=== PATIENT | male | born 1955 | race Caucasian/White ===

== ENCOUNTER 2016-10-11 19:49 | Emergency (ER) | payer OTHER ==
[~2016-10-11 19:49] MED LIST: ASPI325T PO; ASPI81TA85 PO; CLOP75TA2 PO; CORE25TA PO; METAPKT PO; NITR4TASL SL; ULTR50TA PO; ZANT150T PO
--- NOTE | 2016-10-11 21:22 | EDDOCDS ---
Nurse's Notes [facility] Name: Alejandro Henry Age: 60 yrs Sex: Male : 1955 Arrival Date: 10/11/2016 Time: 19:49 Bed 8 Private MD: Diagnosis: Paroxysmal atrial fibrillation-due to noncompliance; spontaneously converted to NSR;Essential (primary) hypertension Presentation: 10/11 19:50 Red Flag criteria, patient assessed and taken directly to a bed. ttb 19:55 Presenting complaint: Patient states: pt was shoveling snow x3 hrs. 1730 pt took ttb evening meds and started feeling palpitations, denies SOB. "indigestion" feeling. Adult Sepsis Screening: The patient does not have new or worsening altered mentation. Patient's respiratory rate is less than 22. Systolic blood pressure is greater than 100. Patient has a qSOFA score of 0- Negative Sepsis Screen. Suicide/Homicide risk assessment- the patient denies having any suicidal and/or homicidal ideations and does not present with any other emotional, behavioral or mental health complaints. Status: Patient is not a gas appliance servicer or dependent. Transition of care: patient was not received from another setting of care. 19:55 Acuity: DANYELL Level 2 ttb 19:55 Method Of Arrival: Walkin/Carried/Asstd ttb Triage Assessment: 20:01 General: Appears in no apparent distress, well nourished, well groomed, Behavior is ttb appropriate for age, cooperative, pleasant. Pain: Denies pain. Pt Declines HIV testing. Neurological: Level of Consciousness is awake, alert. Cardiovascular: Rhythm is regular Chest pain is denied. Respiratory: Airway is patent. Respiratory: Denies cough, shortness of breath. GI: Denies nausea, vomiting, pain. Derm: Skin is normal. Historical: - Allergies: TETRACYCLINES; - Home Meds: 1. Coreg 12.5 mg Oral tab every 12 hours (Last dose: 10/11/2016 19:20) 2. aspirin 325 mg oral tab 1 tab once daily (Last dose: 10/11/2016 19:20) 3. simvastatin 20 mg Oral tab (Last dose: 10/11/2016 19:30) 4. Glucosamine 500 mg oral tab daily 5. spironolactone Unknown Oral Unknown once daily (Last dose: 10/11/2016 07:00) - PMHx: Hypertension; Hypercholesterolemia; Atrial Fib; - PSHx: Cardiac Ablation; Tonsillectomy; Adenoidectomy; - The history from nurses notes was reviewed: and elements of the historical information I have obtained differs from that reported to nursing. - Social history: Smoking status: Patient states was never smoker of tobacco. Patient/guardian denies using alcohol, street drugs, No barriers to communication noted, The patient speaks fluent Lithuanian, Speaks appropriately for age. - : The pt / caregiver states he / she is not on anticoagulants. Home medication list is obtained from the patient. - Hospitalizations: : No recent hospitalization is reported. - Exposure Risk Screening:: None identified. - Immunization history:: All immunizations up-to-date. - Family history: Not pertinent. - Social history:: the patient is a non-smoker, the patient does not drink alcohol. Screenin:30 Screening information is obtained from the patient. Fall risk: No risks identified. mv5 Assistance ADL's: requires no assistance with activities of daily living. Abuse/DV Screen: The patient / caregiver reports he/she is: not in a situation that causes fear, pain or injury. Nutritional screening: No deficits noted. Advance Directives: There is no active DNR order. home support is adequate. Assessment: 20:30 General: Appears in no apparent distress, comfortable, well nourished, well groomed, mv5 Behavior is cooperative, pleasant, at bedsdie.. Pain: Denies pain. Neurological: Level of Consciousness is awake, alert, Oriented to person, place, time. Cardiovascular: Capillary refill < 3 seconds Heart tones S1 S2 present Rhythm is sinus rhythm No ectopy. Respiratory: Airway is patent Respiratory effort is even, unlabored, Respiratory pattern is regular, symmetrical. GI: No deficits noted. : No deficits noted. Derm: Skin is pink, warm & dry. Vital Signs: 19:52 BP 134 / 89 RA Sitting (auto/lg); Pulse 198; Resp 20; Temp 96.9; Pulse Ox 98% on R/A; bnb Weight 104.33 kg; Height 6 ft. 0 in. (182.88 cm); Pain 0/10; 21:07 BP 141 / 84; Pulse 80; Resp 18; Temp 97.8(TE); Pulse Ox 98% on R/A; Pain 0/10; mdr 19:52 Body Mass Index 31.19 (104.33 kg, 182.88 cm) bnb Vitals: 19:52 Log In Time: October 11, 2016 at 19:50. RN notified that patient meets Red Flag bnb criteria. ED Course: 19:52 Patient visited by Ro Travis PCA. bnb 19:52 Patient moved to Waiting bnb 19:54 Mellissa Palacios, RN is Primary Nurse. rs3 19:54 Maria C Godoy,RN is Primary Nurse. rs3 19:54 Patient moved to 8 rs3 19:57 Triage Initiated ttb 20:03 Patient visited by Magalis Shore PCA. cln 20:03 EKG done. (by ED staff). Reviewed by Allan Martinez DO. cln 20:10 Calin Carbjaal MD is Attending Physician. pc 20:18 Patient visited by Calin Carbajal MD. pc 20:30 The patient / caregiver is instructed regarding the plan of care and ED course. mv5 20:30 No IV's were initiated during this patient's visit. No procedures done that require mv5 assistance. 20:54 Jonny Nieto is Referral Physician. pc 21:08 Patient visited by Tang Goodman PCA. mdr Order Results: There are currently no results for this order. Outcome: 20:54 Discharge ordered by Provider. pc 21:19 Discharge Assessment: Patient awake, alert and oriented x 3. No cognitive and/or mv5 functional deficits noted. Patient verbalized understanding of disposition instructions. patient administered narcotics - no. The following High Risk Discharge criteria are identified: None. Discharged to home ambulatory, with family. Condition: stable. Demonstrated understanding of Pt was receptive of discharge instructions/ teaching. No special radiology studies were completed. Property sent home with patient. 21:20 Patient left the ED. mv5 Signatures: Calin Carbajal MD MD pc Soosairaj, Rosemary, RN RN rs3 Mi Herzog RN RN ttb Tang Goodman, MARIE NEEDLEMAKER mdr Magalis Shore PCA NEEDLEMAKER cln Ro Travis NEEDLEMAKER NEEDLEMAKER bnb Maria C Godoy RN RN mv5 MTDD
--- NOTE | 2016-10-11 21:22 | EDDOCDS ---
Physician Documentation [facility] Name: Alejandro Henry Age: 60 yrs Sex: Male : 1955 Arrival Date: 10/11/2016 Time: 19:49 Bed 8 Private MD: Disposition: 10/11 20:53 Critical Care: Critical care not applicable. pc Disposition: 10/11/16 20:54 Discharged to Home/Self Care. Impression: Paroxysmal atrial fibrillation - due to noncompliance; spontaneously converted to NSR, Essential (primary) hypertension. - Condition is Stable. - Discharge Instructions: Atrial Fibrillation. - Medication Reconciliation, Local Pharmacy Hours form. - Follow up: Jonny Nieto; When: Call to arrange an appointment; Reason: Continuance of care. - Problem is new. - Symptoms are resolved. HPI: 20:27 This 60 yrs old Male presents to ER via Walkin/Carried/Asstd with complaints pc of Palpitations. 20:27 The history is obtained from the patient, the patient's spouse. He suddenly felt his pc heart racing after shoveling snow tonight. He did not have any SOB or chest pain, denies any dizziness. He was 2 hours late in taking his meds, including his Coreg that he has for AFib. He states that he was told by Lidia, in Dr. Nieto' office, that his pulse was too low and that she was going to talk to Dr. Nieto about lowering the dose. Dr. Nieto did not want to because his BP was still higher than it should be. The patient decided 3 weeks ago that he would cut it in half on his own. He took both halves tonight and is now going to go back to taking a full one daily. He arrived at the ED with a pulse of 190+ but was in NSR at 86 when placed in his room. 20:27 At their worst, the symptoms were moderate. In the emergency department, the symptoms pc have resolved. Historical: - Allergies: TETRACYCLINES; - Home Meds: 1. Coreg 12.5 mg Oral tab every 12 hours (Last dose: 10/11/2016 19:20) 2. aspirin 325 mg oral tab 1 tab once daily (Last dose: 10/11/2016 19:20) 3. simvastatin 20 mg Oral tab (Last dose: 10/11/2016 19:30) 4. Glucosamine 500 mg oral tab daily 5. spironolactone Unknown Oral Unknown once daily (Last dose: 10/11/2016 07:00) - PMHx: Hypertension; Hypercholesterolemia; Atrial Fib; - PSHx: Cardiac Ablation; Tonsillectomy; Adenoidectomy; - The history from nurses notes was reviewed: and elements of the historical information I have obtained differs from that reported to nursing. - Social history: Smoking status: Patient states was never smoker of tobacco. Patient/guardian denies using alcohol, street drugs, No barriers to communication noted, The patient speaks fluent Singaporean, Speaks appropriately for age. - : The pt / caregiver states he / she is not on anticoagulants. Home medication list is obtained from the patient. - Hospitalizations: : No recent hospitalization is reported. - Exposure Risk Screening:: None identified. - Immunization history:: All immunizations up-to-date. - Family history: Not pertinent. - Social history:: the patient is a non-smoker, the patient does not drink alcohol. ROS: 20:32 All systems are negative except as listed. pc Exam: 20:32 General Appearance: no acute distress, alert. pc 20:32 EENT: normal eye inspection, ears, nose and throat normal, pharynx normal, mucous membranes moist 20:32 Neck: The exam reveals no acute abnormalities. ROM is normal and painless. No nuchal rigidity is noted.. 20:32 Respiratory: no respiratory distress, normal breath sounds, chest non-tender. 20:32 CVS: regular pulse rate, regular rhythm, normal S1 and S2, no murmurs, strong peripheral pulses, normal capillary refill. 20:32 Abdomen: soft, non-tender, no organomegaly, normal bowel sounds. 20:32 Back: normal inspection. 20:32 Skin: skin color is normal, warm, dry. 20:32 Extremities: The extremities have a grossly normal appearance, are non-tender, without acute ROM abnormalities. 20:32 Neuro: oriented x 3, cranial nerves normal as tested, no motor deficits, no sensory deficits. 20:32 Psych: normal mood. Vital Signs: 19:52 BP 134 / 89 RA Sitting (auto/lg); Pulse 198; Resp 20; Temp 96.9; Pulse Ox 98% on R/A; bnb Weight 104.33 kg / 230.01 lbs; Height 6 ft. 0 in. (182.88 cm); Pain 0/10; 21:07 BP 141 / 84; Pulse 80; Resp 18; Temp 97.8(TE); Pulse Ox 98% on R/A; Pain 0/10; mdr 19:52 Body Mass Index 31.19 (104.33 kg, 182.88 cm) bnb MDM: 19:54 ECG WITH READING ER PHYS+CARDIAG ordered. EDMS 20:34 Differential Diagnosis: AFib with RVR, spontaneously converted to NSR; essential HTN. pc Plan: review EKG, observe, call Dr. Rogers. Test interpretation: EKG. 20:53 Data reviewed: old medical records, vital signs, nurses notes, EKG(s). The patient has pc been re-examined and re-evaluated. The clinical presentation did not require any ED treatment or interventions. Physician consultation: Dr. Preet Rogers MD was contacted at 20:53, regarding patient's condition, and advises the medications/treatment as provided. and agrees with the treatment provided and advises the discharge plans as outlined. Disposition: The historical points, examination findings, and any diagnostic results supporting the provided diagnosis, were discussed with the patient or legal guardian. The need for outpatient follow up with the provider listed on their discharge instructions was discussed. They were encouraged to return to [facility], or the nearest ED, if symptoms worsen/persist, or for any other questions/concerns. EC:34 Rate is 85 beats/min. Rhythm is regular, Normal Sinus Rhythm. QRS [place] is Normal. [place] pc interval is normal. QRS interval is normal. QT interval is normal. No Q waves. T waves are Normal. No ST changes noted. Clinical impression: Normal Sinus Rhythm. Signatures: Dispatcher [employer] EDMS Calin Carbajal MD MD pc Conner, Teresa RN RN ttb Maria C GodoyRN RN mv5 The chart was reviewed and I authenticate all verbal orders and agree with the evaluation and treatment provided.Corrections: (The following items were deleted from the chart) 20:34 20:27 He suddenly felt his heart racing after shoveling snow tonight. He did not have pc any SOB or chest pain, denies any dizziness. He was 2 hour slate in taking his meds, including his Coreg that he has for AFib. He states that he was told by Lidia in Dr. Nieto' office, that his pulse was too low and that she was going to talk to Dr. Nieto about lowering the dose. Dr. Nieto did not want to because his BP was still higher than it should be. The patient decided 3 weeks ago that he would cut it in misty on his own. He took both halves tonight and is now going to go back to taking a full one daily. pc MTDD
--- NOTE | 2016-10-12 08:29 | ECGEPIP ---
Stationary ECG Study [facility] - ED Test Date: 2016-10-11 Pat Name: NIECY RODRIGUEZ Department: Room: - Gender: M Technical Training Instructor: zoe : 1955 Requested By: ALYSA Ge Order Number: [id number] Reading MD: Darcie Gutierrez Measurements Intervals [place] Rate: 85 P: 48 CT: 154 QRS: -6 QRSD: 104 T: 22 QT: 353 QTc: 420 Interpretive Statements SINUS RHYTHM PRIOR [id number] Electronically Signed On 10-12-2016 8:28:46 EST by Darcie Gutierrez
--- NOTE | 2016-10-13 22:21 | EDDOCDS ---
Physician Documentation [facility] Name: Alejandro Henry Age: 60 yrs Sex: Male : 1955 Arrival Date: 10/11/2016 Time: 19:49 Bed 8 Private MD: Disposition: 10/11 20:53 Critical Care: Critical care not applicable. pc Disposition: 10/11/16 20:54 Discharged to Home/Self Care. Impression: Paroxysmal atrial fibrillation - due to noncompliance; spontaneously converted to NSR, Essential (primary) hypertension. - Condition is Stable. - Discharge Instructions: Atrial Fibrillation. - Medication Reconciliation, Local Pharmacy Hours form. - Follow up: Jonny Nieto; When: Call to arrange an appointment; Reason: Continuance of care. - Problem is new. - Symptoms are resolved. HPI: 20:27 This 60 yrs old Male presents to ER via Walkin/Carried/Asstd with complaints pc of Palpitations. 20:27 The history is obtained from the patient, the patient's spouse. He suddenly felt his pc heart racing after shoveling snow tonight. He did not have any SOB or chest pain, denies any dizziness. He was 2 hours late in taking his meds, including his Coreg that he has for AFib. He states that he was told by Lidia, in Dr. Nieto' office, that his pulse was too low and that she was going to talk to Dr. Nieto about lowering the dose. Dr. Nieto did not want to because his BP was still higher than it should be. The patient decided 3 weeks ago that he would cut it in half on his own. He took both halves tonight and is now going to go back to taking a full one daily. He arrived at the ED with a pulse of 190+ but was in NSR at 86 when placed in his room. 20:27 At their worst, the symptoms were moderate. In the emergency department, the symptoms pc have resolved. Historical: - Allergies: TETRACYCLINES; - Home Meds: 1. Coreg 12.5 mg Oral tab every 12 hours (Last dose: 10/11/2016 19:20) 2. aspirin 325 mg oral tab 1 tab once daily (Last dose: 10/11/2016 19:20) 3. simvastatin 20 mg Oral tab (Last dose: 10/11/2016 19:30) 4. Glucosamine 500 mg oral tab daily 5. spironolactone Unknown Oral Unknown once daily (Last dose: 10/11/2016 07:00) - PMHx: Hypertension; Hypercholesterolemia; Atrial Fib; - PSHx: Cardiac Ablation; Tonsillectomy; Adenoidectomy; - The history from nurses notes was reviewed: and elements of the historical information I have obtained differs from that reported to nursing. - Social history: Smoking status: Patient states was never smoker of tobacco. Patient/guardian denies using alcohol, street drugs, No barriers to communication noted, The patient speaks fluent Russian, Speaks appropriately for age. - : The pt / caregiver states he / she is not on anticoagulants. Home medication list is obtained from the patient. - Hospitalizations: : No recent hospitalization is reported. - Exposure Risk Screening:: None identified. - Immunization history:: All immunizations up-to-date. - Family history: Not pertinent. - Social history:: the patient is a non-smoker, the patient does not drink alcohol. ROS: 20:32 All systems are negative except as listed. pc Exam: 20:32 General Appearance: no acute distress, alert. pc 20:32 EENT: normal eye inspection, ears, nose and throat normal, pharynx normal, mucous membranes moist 20:32 Neck: The exam reveals no acute abnormalities. ROM is normal and painless. No nuchal rigidity is noted.. 20:32 Respiratory: no respiratory distress, normal breath sounds, chest non-tender. 20:32 CVS: regular pulse rate, regular rhythm, normal S1 and S2, no murmurs, strong peripheral pulses, normal capillary refill. 20:32 Abdomen: soft, non-tender, no organomegaly, normal bowel sounds. 20:32 Back: normal inspection. 20:32 Skin: skin color is normal, warm, dry. 20:32 Extremities: The extremities have a grossly normal appearance, are non-tender, without acute ROM abnormalities. 20:32 Neuro: oriented x 3, cranial nerves normal as tested, no motor deficits, no sensory deficits. 20:32 Psych: normal mood. Vital Signs: 19:52 BP 134 / 89 RA Sitting (auto/lg); Pulse 198; Resp 20; Temp 96.9; Pulse Ox 98% on R/A; bnb Weight 104.33 kg / 230.01 lbs; Height 6 ft. 0 in. (182.88 cm); Pain 0/10; 21:07 BP 141 / 84; Pulse 80; Resp 18; Temp 97.8(TE); Pulse Ox 98% on R/A; Pain 0/10; mdr 19:52 Body Mass Index 31.19 (104.33 kg, 182.88 cm) bnb MDM: 19:54 ECG WITH READING ER PHYS+CARDIAG ordered. EDMS 20:34 Differential Diagnosis: AFib with RVR, spontaneously converted to NSR; essential HTN. pc Plan: review EKG, observe, call Dr. Rogers. Test interpretation: EKG. 20:53 Data reviewed: old medical records, vital signs, nurses notes, EKG(s). The patient has pc been re-examined and re-evaluated. The clinical presentation did not require any ED treatment or interventions. Physician consultation: Dr. Preet Rogers MD was contacted at 20:53, regarding patient's condition, and advises the medications/treatment as provided. and agrees with the treatment provided and advises the discharge plans as outlined. Disposition: The historical points, examination findings, and any diagnostic results supporting the provided diagnosis, were discussed with the patient or legal guardian. The need for outpatient follow up with the provider listed on their discharge instructions was discussed. They were encouraged to return to [facility], or the nearest ED, if symptoms worsen/persist, or for any other questions/concerns. 02 12:32 ECG/EKG was scanned into [facility] and attached to record. EC12 20:34 Rate is 85 beats/min. Rhythm is regular, Normal Sinus Rhythm. QRS [place] is Normal. [place] pc interval is normal. QRS interval is normal. QT interval is normal. No Q waves. T waves are Normal. No ST changes noted. Clinical impression: Normal Sinus Rhythm. Signatures: Dispatcher [employer] EDMS Calin Carbajal MD MD pc Shyanne Pappas, Reg Reg gb Mi Herzog RN RN ttb Vannedery, MeganRN RN mv5 The chart was reviewed and I authenticate all verbal orders and agree with the evaluation and treatment provided.Corrections: (The following items were deleted from the chart) 20:34 20:27 He suddenly felt his heart racing after shoveling snow tonight. He did not have pc any SOB or chest pain, denies any dizziness. He was 2 hour slate in taking his meds, including his Coreg that he has for AFib. He states that he was told by Lidia, in Dr. Nieto' office, that his pulse was too low and that she was going to talk to Dr. Nieto about lowering the dose. Dr. Nieto did not want to because his BP was still higher than it should be. The patient decided 3 weeks ago that he would cut it in misty on his own. He took both halves tonight and is now going to go back to taking a full one daily. pc Attachments: 10/12 12:32 ECG/EKG gb Chart Complete MTDD
--- NOTE | 2016-10-13 22:21 | EDDOCDS ---
Nurse's Notes [facility] Name: Alejandro Rodriguez Age: 60 yrs Sex: Male : 1955 Arrival Date: 10/11/2016 Time: 19:49 Bed 8 Private MD: Diagnosis: Paroxysmal atrial fibrillation-due to noncompliance; spontaneously converted to NSR;Essential (primary) hypertension Presentation: 10/11 19:50 Red Flag criteria, patient assessed and taken directly to a bed. ttb 19:55 Presenting complaint: Patient states: pt was shoveling snow x3 hrs. 1730 pt took ttb evening meds and started feeling palpitations, denies SOB. "indigestion" feeling. Adult Sepsis Screening: The patient does not have new or worsening altered mentation. Patient's respiratory rate is less than 22. Systolic blood pressure is greater than 100. Patient has a qSOFA score of 0- Negative Sepsis Screen. Suicide/Homicide risk assessment- the patient denies having any suicidal and/or homicidal ideations and does not present with any other emotional, behavioral or mental health complaints. Status: Patient is not a web services manager or dependent. Transition of care: patient was not received from another setting of care. 19:55 Acuity: DANYELL Level 2 ttb 19:55 Method Of Arrival: Walkin/Carried/Asstd ttb Triage Assessment: 20:01 General: Appears in no apparent distress, well nourished, well groomed, Behavior is ttb appropriate for age, cooperative, pleasant. Pain: Denies pain. Pt Declines HIV testing. Neurological: Level of Consciousness is awake, alert. Cardiovascular: Rhythm is regular Chest pain is denied. Respiratory: Airway is patent. Respiratory: Denies cough, shortness of breath. GI: Denies nausea, vomiting, pain. Derm: Skin is normal. Historical: - Allergies: TETRACYCLINES; - Home Meds: 1. Coreg 12.5 mg Oral tab every 12 hours (Last dose: 10/11/2016 19:20) 2. aspirin 325 mg oral tab 1 tab once daily (Last dose: 10/11/2016 19:20) 3. simvastatin 20 mg Oral tab (Last dose: 10/11/2016 19:30) 4. Glucosamine 500 mg oral tab daily 5. spironolactone Unknown Oral Unknown once daily (Last dose: 10/11/2016 07:00) - PMHx: Hypertension; Hypercholesterolemia; Atrial Fib; - PSHx: Cardiac Ablation; Tonsillectomy; Adenoidectomy; - The history from nurses notes was reviewed: and elements of the historical information I have obtained differs from that reported to nursing. - Social history: Smoking status: Patient states was never smoker of tobacco. Patient/guardian denies using alcohol, street drugs, No barriers to communication noted, The patient speaks fluent Yoruba, Speaks appropriately for age. - : The pt / caregiver states he / she is not on anticoagulants. Home medication list is obtained from the patient. - Hospitalizations: : No recent hospitalization is reported. - Exposure Risk Screening:: None identified. - Immunization history:: All immunizations up-to-date. - Family history: Not pertinent. - Social history:: the patient is a non-smoker, the patient does not drink alcohol. Screenin:30 Screening information is obtained from the patient. Fall risk: No risks identified. mv5 Assistance ADL's: requires no assistance with activities of daily living. Abuse/DV Screen: The patient / caregiver reports he/she is: not in a situation that causes fear, pain or injury. Nutritional screening: No deficits noted. Advance Directives: There is no active DNR order. home support is adequate. Assessment: 20:30 General: Appears in no apparent distress, comfortable, well nourished, well groomed, mv5 Behavior is cooperative, pleasant, at bedsdie.. Pain: Denies pain. Neurological: Level of Consciousness is awake, alert, Oriented to person, place, time. Cardiovascular: Capillary refill < 3 seconds Heart tones S1 S2 present Rhythm is sinus rhythm No ectopy. Respiratory: Airway is patent Respiratory effort is even, unlabored, Respiratory pattern is regular, symmetrical. GI: No deficits noted. : No deficits noted. Derm: Skin is pink, warm & dry. Vital Signs: 19:52 BP 134 / 89 RA Sitting (auto/lg); Pulse 198; Resp 20; Temp 96.9; Pulse Ox 98% on R/A; bnb Weight 104.33 kg; Height 6 ft. 0 in. (182.88 cm); Pain 0/10; 21:07 BP 141 / 84; Pulse 80; Resp 18; Temp 97.8(TE); Pulse Ox 98% on R/A; Pain 0/10; mdr 19:52 Body Mass Index 31.19 (104.33 kg, 182.88 cm) bnb Vitals: 19:52 Log In Time: October 11, 2016 at 19:50. RN notified that patient meets Red Flag bnb criteria. ED Course: 19:52 Patient visited by Ro Travis PCA. bnb 19:52 Patient moved to Waiting bnb 19:54 Mellissa Palacios, RN is Primary Nurse. rs3 19:54 Maria C Godoy,RN is Primary Nurse. rs3 19:54 Patient moved to 8 rs3 19:57 Triage Initiated ttb 20:03 Patient visited by Magalis Shore PCA. cln 20:03 EKG done. (by ED staff). Reviewed by Alysa Martinez DO. cln 20:10 Calin Carbajal MD is Attending Physician. pc 20:18 Patient visited by Calin Carbajal MD. pc 20:30 The patient / caregiver is instructed regarding the plan of care and ED course. mv5 20:30 No IV's were initiated during this patient's visit. No procedures done that require mv5 assistance. 20:54 Jonny Nieto is Referral Physician. pc 21:08 Patient visited by Tang Goodman PCA. mdr 10/12 08:34 EKG-ADULT Returned. EDMS 12:32 ECG/EKG was scanned into [employer] and attached to record. gb Order Results: Radiology Order: EKG-ADULT Test: EKG-ADULT REASON FOR EXAMINATION: palpitations; Stationary ECG Study; [facility] - ED; ; Test Date: 2016-10-11; Pat Name: ALEJANDRO RODRIGUEZ Department:; Room: -; Gender: M Arcade Technician: zoe; : 1955 Requested By: ALYSA Ge; Order Number: [id number] Reading MD: Darcie Gutierrez; Measurements; Intervals [place]; Rate: 85 P: 48; DC: 154 QRS: -6; QRSD: 104 T: 22; QT: 353; QTc: 420; Interpretive Statements; SINUS RHYTHM; PRIOR SVT03/31/14; Electronically Signed On 10-12-2016 8:28:46 EST by Darcie Gutierrez; Outcome: 10/11 20:54 Discharge ordered by Provider. pc 21:19 Discharge Assessment: Patient awake, alert and oriented x 3. No cognitive and/or mv5 functional deficits noted. Patient verbalized understanding of disposition instructions. patient administered narcotics - no. The following High Risk Discharge criteria are identified: None. Discharged to home ambulatory, with family. Condition: stable. Demonstrated understanding of Pt was receptive of discharge instructions/ teaching. No special radiology studies were completed. Property sent home with patient. 21:20 Patient left the ED. mv5 Signatures: Dispatcher [employer] EDMS Calin Carbajal MD MD pc Shyanne Pappas, Reg Reg gb Lesly Zamora,RN RN rs3 Mi Herzog RN RN Tang Griffin, GM MOBILE GM MOBILE Magalis Livingston, GM MOBILE GM MOBILE Ro Lux, GM MOBILE GM MOBILE Maria C Deras,RN RN mv5 Chart Complete MTDD
== END 2016-10-11 21:20 | disposition home or self-care (01) ==
LOC: M ED 19:49
DX: I48.0 Paroxysmal atrial fibrillation (principal); Z91.14 Patient's other noncompliance with medication regimen; I10 Essential (primary) hypertension; E78.00 Pure hypercholesterolemia, unspecified; Z79.82 Long term (current) use of aspirin; Z79.899 Other long term (current) drug therapy; Z88.1 Allergy status to other antibiotic agents

== ENCOUNTER → 2017-01-03 | Outpatient (CLI) | payer OTHER ==
--- NOTE | 2017-01-05 09:53 | SLEEPCENT ---
DATE OF PROCEDURE: 01/03/2017 ORDERED BY: Kenia Cunha Nocturnal polysomnography was performed due to concern for the obstructive sleep apnea syndrome in this patient with a history of excessive somnolence and nonrestorative sleep. Home testing had been performed, but was found nondiagnostic. 8 hours of data were reviewed. There were 372 minutes of sleep identified. Sleep latency was normal at 12 minutes. Rapid eye movement (REM) sleep was delayed at 171 minutes. Sleep architecture showed significant fragmentation. Sleep progression was fair. There were 3 REM periods appreciated. Overall sleep efficiency was 78.2%. Electrocardiogram (EKG) showed a sinus rhythm with an average heart rate of 58 beats per minute. Electroencephalogram (EEG) showed fairly normal waveforms for wake and sleep stages. There were 34 respiratory events identified of 10 seconds in duration or greater for an apnea-hypopnea index of 5.5. The events were primarily obstructive and predominantly occurred in the supine position. They were not stage related. Arousals from respiratory events occurred 7.9 times per hour when arousals from snoring were included. Oxygen saturations remained 90% or better for most of the study. There was significant limb activity with a limb movement arousal index of 13.1 and 5 trains of 30 events. IMPRESSION: 1. Periodic limb movement disorder (G47.61), limb movement arousal index of 13.1. 2. Mild positional obstructive sleep apnea syndrome (G47.33), apnea-hypopnea index 5.5. RECOMMENDATION: Sleep position retraining for avoidance of the supine posture may be sufficient to address the patient's respiratory events. If symptoms persist despite sleep position retraining, return to the sleep center for pressure titration may be helpful. Interventions to reduce the frequency or arousal from limb activity are likely to be necessary to improve sleep efficiency given the elevated arousal index identified.
== END ==
LOC: M SLEEP 08:50
PROVIDERS: ATTEND Nurse Practitioner Adult Health
DX: G47.30 Sleep apnea, unspecified (principal)

== ENCOUNTER → 2017-02-21 | Outpatient (CLI) | payer OTHER ==
--- NOTE | 2017-02-23 09:37 | SLEEPCENT ---
DATE OF STUDY: 02/21/2017 ORDERING PROVIDER: Kenia Cunha NP Nocturnal polysomnography was performed for the titration of pressure therapy in this patient with obstructive sleep apnea syndrome, apnea-hypopnea index of 5.5. For testing, the patient was fit with a ResMed AirFit F20 full face mask of medium size. 4 cm of water pressure were applied to the circuit, and the lights were extinguished. 7 hours and 2 minutes of data were reviewed. There were 366 minutes of sleep identified. Sleep latency was mildly prolonged at 16 minutes. Rapid eye movement (REM) latency was normal at 83 minutes. Sleep architecture improved with optimal pressure therapy. There were 3-4 REM periods appreciated. Overall sleep efficiency was 88.1%. Electrocardiogram (EKG) showed a sinus rhythm with occasional PVCs. Average heart rate 50 beats per minute. Heart rate ranged 35-60. Electroencephalogram (EEG) showed reasonably normal waveforms for awake and sleep. Respiratory events were found best palliated with continuous positive airway pressure (CPAP) at a pressure of +7, with which pressure the patient slept through REM without respiratory event or oxygen desaturation. There was limb activity appreciated. Limb movement arousal index was 4.9, down significantly from the diagnostic study. IMPRESSION: Obstructive sleep apnea syndrome (G47.33). RECOMMENDATION: Nightly use of pressure therapy 7 cm of water. MTDD
== END ==
LOC: M SLEEP 20:00
PROVIDERS: ATTEND Nurse Practitioner Adult Health
DX: G47.33 Obstructive sleep apnea (adult) (pediatric) (principal)

== ENCOUNTER 2017-08-15 13:28 | Emergency (ER) | payer OTHER ==
[~2017-08-15] VITALS: Ht 180.3 cm; Wt 104.5 kg
[2017-08-15 13:35] VITALS: BP 169/83
[2017-08-15] MEDS ORDERED: LORA10TA2 PO (13:46)
[2017-08-15] MEDS ORDERED: SIMV20TA2 PO (13:46)
[2017-08-15] MEDS ORDERED: SPIR25TA2 PO (13:46)
[2017-08-15] MEDS ORDERED: VIAG100T (13:46)
--- NOTE | 2017-08-15 15:04 | REP ---
Left tibia-fibula four views: I suspect nondisplaced fractures of the distal fibula and medial malleolus. This could be artifact from unfused epiphyses. Correlate with clinical point tenderness. Mineralization joint spaces are normal. No calcifications or foreign bodies. Impression: Question nondisplaced fractures of the medial lateral malleoli versus unfused epiphyses. Correlate with clinical point tenderness. Signed by Escobar Barlow MD 08/15/2017 02:55 P
--- NOTE | 2017-08-15 15:07 | REP ---
Left ankle four views: There is a transverse fracture of the medial malleolus. There is no lateral malleolar fracture. No posterior malleolar fracture. Mortise is symmetric. Mineralization normal. No calcifications or foreign bodies. Impression: Medial malleolar fracture. Signed by Escobar Barlow MD 08/15/2017 02:58 P
--- NOTE | 2017-08-16 07:23 | REP ---
Calcaneus two views: There are calcaneal plantar and Achilles spurs. Mineralization is normal. There is no fracture. There are no calcifications or foreign bodies. Signed by Escobar Barlow MD 08/15/2017 02:58 P
== END 2017-08-15 16:27 | disposition home or self-care (01) ==
LOC: M ED 13:28
DX: S82.52XA Displaced fracture of medial malleolus of left tibia, initial encounter for closed fracture (principal); W11.XXXA Fall on and from ladder, initial encounter; Y92.018 Other place in single-family (private) house as the place of occurrence of the external cause; Y93.89 Activity, other specified; Y99.8 Other external cause status; Z79.899 Other long term (current) drug therapy; Z79.82 Long term (current) use of aspirin; Z88.1 Allergy status to other antibiotic agents

== ENCOUNTER → 2017-11-08 | Outpatient (REF) | payer OTHER ==
[2017-11-08 18:12] LABS: VITAMIN B12 LEVEL > 2000 PG/ML
== END ==
LOC: M LAB REF 16:41
DX: D48.5 Neoplasm of uncertain behavior of skin (principal)

== ENCOUNTER → 2017-11-24 | Outpatient (REF) | payer OTHER | LOC: M LAB REF 13:19 | DX: L72.3 Sebaceous cyst (principal); D48.5 Neoplasm of uncertain behavior of skin ==

== ENCOUNTER → 2017-12-31 | Outpatient (REF) | payer OTHER | LOC: M LAB REF 12:11 | DX: D10.39 Benign neoplasm of other parts of mouth (principal) | CPT/HCPCS: 88305 ==

== ENCOUNTER 2018-11-14 17:39 | Inpatient (IN) | payer OTHER ==
[~2018-11-14] VITALS: Ht 180.3 cm; Wt 104.5 kg
[~2018-11-14 17:39] MED LIST changes: +LORA-243 PO; +SIMV20TA2 PO; +SPIR-10 PO; +VIAG100T
[2018-11-14] MEDS ORDERED: CARV3.12 (18:02)
[2018-11-14] MEDS ORDERED: ASPI81TA85 PO (18:02)
[2018-11-14 18:25] LABS: BASO # 0.1 10^3/uL (0.0-0.2); BASO % 0.5 % (0.0-1.0); EOS # 0.2 10^3/uL (0.0-0.50); EOS % 1.9 % (0.0-3.0); HEMOGLOBIN 14.8 g/dl (13.5-17.5); LYMPH # 2.6 10^3/uL (1.5-4.5); LYMPH % 22.6 % (24.0-44.0); MEAN CORPUSCULAR HEMOGLOBIN 30.5 pg (27.0-33.0); MEAN CORPUSCULAR HGB CONC 34.4 g/dl (32.0-36.5); MEAN CORPUSCULAR VOLUME 88.7 fl (80.0-96.0); MONO # 0.7 10^3/uL (0.0-0.8); MONO % 5.6 % (0.0-5.0); NEUTROPHILS # 8.1 10^3/uL (1.8-7.7); PLATELET COUNT, AUTOMATED 261 10^3/uL (150-450); RED BLOOD COUNT 4.85 10^6/uL (4.30-6.10); WHITE BLOOD COUNT 11.7 10^3/uL (4.0-10.0)
--- NOTE | 2018-11-14 18:39 | REP ---
Portable chest x-ray: Upright single view. History: Dyspnea and cough. Comparison chest x-ray: September 05, 2013. Findings: EKG monitoring electrodes overlie the chest. Cardiomediastinal silhouette is unremarkable and unchanged. No infiltrate is seen. Pleural angles are sharp. Pulmonary vasculature is not increased. Impression: No active cardiopulmonary disease. Electronically Signed by Kamari Finney MD 11/14/2018 06:31 P
[2018-11-14 18:57] LABS: INFLUENZA A AMPLIFICATION NEGATIVE (NEGATIVE); INFLUENZA B AMPLIFICATION NEGATIVE (NEGATIVE)
[2018-11-14 18:57] LABS: ALBUMIN 4.1 GM/DL (3.2-5.2); ALT/SGPT 30 U/L (12-78); BILIRUBIN,DIRECT 0.2 MG/DL (0.0-0.2); BILIRUBIN,TOTAL 0.8 MG/DL (0.2-1.0); BLOOD UREA NITROGEN 17 MG/DL (7-18); CALCIUM LEVEL 8.3 MG/DL (8.8-10.2); CARBON DIOXIDE LEVEL 26 MEQ/L (21-32); CHLORIDE LEVEL 104 MEQ/L (98-107); CPK CREATINE PHOSPHOKINASE 187 U/L (39-308); CREATININE FOR GFR 1.09 MG/DL (0.70-1.30); GLOMERULAR FILTRATION RATE > 60.0 (>49); GLUCOSE, FASTING 124 MG/DL (70-100); LIPASE 86 U/L (73-393); MB/CK RELATIVE INDEX 1.82 (< OR =4); NT-PRO BNP 320 PG/ML (<125); POTASSIUM SERUM 3.8 MEQ/L (3.5-5.1); SODIUM LEVEL 138 MEQ/L (136-145)
--- NOTE | 2018-11-14 19:48 | REP ---
Right upper quadrant sonography: History: Rule out cholecystitis. Comparison study: No comparison study. Findings: Scanning through the right upper quadrant of the abdomen demonstrates a normal sized, thin-walled gallbladder without evidence of stone or polyp. Common bile duct is normal measuring 0.4 cm in greatest diameter. No focal liver lesion is seen. Liver size is normal. No pancreatic abnormality is observed. No right renal abnormality is seen. There is no evidence of ascites. The right kidney measures 12.2 x 4.4 x 5.1 cm. Impression: Negative right upper quadrant sonography. Electronically Signed by Kamari Finney MD 11/14/2018 09:03 P
[2018-11-15 00:10] LABS: MB/CK RELATIVE INDEX 2.76 (< OR =4); TROPONIN I 0.54 NG/ML (< 0.10)
[2018-11-15] MEDS ORDERED: SIMV20TA2 PO (01:23)
[2018-11-15] MEDS ORDERED: LORA24TA PO (01:23)
[2018-11-15] MEDS ORDERED: ASPI1TAB PO (01:23)
[2018-11-15] MEDS ORDERED: CARV3.12 PO (01:23)
[2018-11-15] MEDS ORDERED: ONDANSETRON 4MG/2ML VIAL (J2405) IV PRN (01:30)
[2018-11-15] MEDS ORDERED: ACETAMINOPHEN TAB 650MG DOSE (2X325MG) PO PRN (01:30)
--- NOTE | 2018-11-15 02:28 | HPE ---
DATE OF ADMISSION: 11/15/2018 CHIEF COMPLAINT: Nausea, diaphoresis, palpitations. HISTORY OF PRESENT ILLNESS: The patient is a 63-year-old male. He has a significant past medical history of hypertension, hyperlipidemia, obesity, paroxysmal atrial fibrillation status post ablation five years ago. He usually follows with Dr. Nieto. He also had a stress test approximately five years ago which was negative. He presents to the emergency room with nausea and diaphoresis that started tonight. The patient states that he also felt his heart racing. His was at bedside and says she listened to his heart and that it was racing quite significantly. He had a bowel movement and he said his symptoms immediately resolved. He has not had any chest pain, cough, fevers, chills, abdominal pain, constipation or urinary symptoms. In the emergency room initial troponin was negative. Second troponin was bumped to 0.54. He currently is asymptomatic. Denies any chest pain. Electrocardiogram (EKG) has no ischemic changes. PAST MEDICAL HISTORY: See history of the present illness (HPI). PAST SURGICAL HISTORY: Ablation. HOME MEDICATIONS: Include: - aspirin - Coreg - Zocor - spironolactone ALLERGIES: TETRACYCLINE. SOCIAL HISTORY: Denies alcohol, tobacco or illicit drug use. FAMILY HISTORY: Family history of coronary artery disease, not premature coronary artery disease just coronary artery disease involvement. REVIEW OF SYSTEMS: A 12-point review of systems was completed, all of which were negative except those listed in the history of the present illness. VITAL SIGNS ON ADMISSION: He was afebrile, initial pulse of 175, respirations of 20, saturating at 98% on room air, blood pressure (BP) 137/85. PHYSICAL EXAMINATION: General: He is well nourished, in no apparent distress. Head is normocephalic, atraumatic. Eyes: Extraocular movements are intact. Pupils equal, round, reactive to light. Neck is supple. No jugular venous pressure (JVP). Lungs: Clear to auscultation. No crackles, wheezes, rales or rhonchi. Cardiovascular: Regular rate and rhythm. Normal S1, S2. No murmurs, gallops, or rubs. Abdomen: Soft, nontender, nondistended, positive bowel sounds. No rebound or guarding. Extremities: No pitting edema or calf tenderness. Skin: Intact. No rashes, lesions or breakdown. Neurological: Alert and oriented (A and O) times three. No focal deficits appreciated on the examination. LABORATORIES AND IMAGING COMPLETED IN THE EMERGENCY DEPARTMENT: White count of 11, hemoglobin and hematocrit (H and H) of 14/43, platelet count of 261. Chemistry shows a BUN and creatinine of 17/1.07. Initial troponin of 0.1, repeat 0.54. Thyroid-stimulating hormone (TSH) of 4.45. ProBNP of 320. Rapid flu is negative. Ultrasound of the right upper quadrant is negative. Chest x-ray is negative. ASSESSMENT AND PLAN: 1. Vwx-UU-lzbbinjoc myocardial infarction likely type 2 urr-VM-byuisvihi myocardial infarction in the setting of paroxysmal atrial fibrillation. The patient has a known history of paroxysmal atrial fibrillation. For now, we will trend the troponins, daily electrocardiogram (EKG), we will get an echocardiogram. We will recheck free T4 and thyroid-stimulating hormone (TSH). We will check all the electrolytes. Potassium and calcium were within normal limits. We will place the patient on telemetry to assess for any episodes of atrial fibrillation (AFib). I believe this is a type 2 in this vcy-CD-ttffibqty myocardial infarction demand ischemia from the elevated heart rates. If the repeat troponins continue to increase we will continue the anticoagulation at that point in time. CHADS VASc score is only 1 so aspirin is appropriate for stroke prevention. His thrombolysis in myocardial infarction (JAYCE) score is 3 and his heart score is 4. I do believe that patient would benefit from a stress test if his troponin does continue to be persistently elevated. 2. Paroxysmal atrial fibrillation: See problem number one. 3. Hypertension: Continue Coreg and spironolactone. 4. Hyperlipidemia: Continue statin. 5. Supportive deep vein thrombosis (DVT) prophylaxis: Heparin subcutaneous. 6. Gastrointestinal (GI) prophylaxis: It is not indicated. 7. Diet: Cardiac. Again, enzymes will be checked every 5 hourly for now. If his enzymes trend up the patient will be started on anticoagulation. For now I believe this is rcl-LK-pwpwxluik myocardial infarction type 2 in the setting of paroxysmal atrial fibrillation. Cardiology to see patient in the a.m.
[2018-11-15 03:00] VITALS: BP 149/82
[2018-11-15 04:56] LABS: APPEARANCE, URINE CLEAR (CLEAR); BACTERIA, URINE AUTO NEGATIVE (NEGATIVE); BILIRUBIN, URINE AUTO NEGATIVE (NEGATIVE); BLOOD, URINE BLOOD NEGATIVE (NEGATIVE); COLOR, URINE YELLOW (YELLOW); GLUCOSE, URINE (UA) AUTO NEGATIVE (NEGATIVE); KETONE, URINE AUTO TRACE mg/dL (NEGATIVE); LEUKOCYTE ESTERASE, URINE AUTO NEGATIVE (NEGATIVE); NITRITE, URINE AUTO NEGATIVE (NEGATIVE); PROTEIN, URINE AUTO NEGATIVE (NEGATIVE); RBC, URINE AUTO 1 /HPF (0-3); SPECIFIC GRAVITY URINE AUTO 1.018 (1.002-1.035); SQUAMOUS EPITHELIAL CELL UR AU 0 /HPF (0-6); UROBILINOGEN, URINE AUTO 0.2 mg/dL (0.0-2.0); WBC, URINE AUTO 1 /HPF (0-3)
[2018-11-15 05:12] LABS: INR 1.48; PROTHROMBIN TIME 18.2 SECONDS (12.1-14.4)
[2018-11-15 05:13] LABS: PARTIAL THROMBOPLASTIN TIME 37.4 SECONDS (25.4-37.6)
[2018-11-15 05:38] LABS: FREE T4 1.04 NG/DL (0.76-1.46); THYROID STIMULATING HORMONE 2.04 uIU/ML (0.358-3.740)
[2018-11-15 05:47] LABS: MAGNESIUM LEVEL 2.1 MG/DL (1.8-2.4)
[2018-11-15] MEDS ORDERED: HEPARIN SOD (PORCINE) 5000 UNITS/ML VIAL SC SCH (06:00)
[2018-11-15] MEDS ORDERED: ENOXAPARIN 100MG/1ML SYRINGE (J1650) SC SCH (06:00)
[2018-11-15] MEDS ORDERED: CLOPIDOGREL 75 MG TAB PO ONE (07:30)
[2018-11-15 08:00] VITALS: BP 128/88
[2018-11-15 08:28] LABS: MB/CK RELATIVE INDEX 3.03 (< OR =4); TROPONIN I 0.65 NG/ML (< 0.10)
--- NOTE | 2018-11-15 08:50 | ECGEPIP ---
Stationary ECG Study [facility] - ED Test Date: 2018-11-14 Pat Name: NIECY RODRIGUEZ Department: Room: - Gender: M Willow Specialists: : 1955 Requested By: Darcie Gutierrez Order Number: [id number] Reading MD: Calin Carbajal Measurements Intervals [place] Rate: 78 P: 50 SC: 157 QRS: -13 QRSD: 114 T: 7 QT: 355 QTc: 405 Interpretive Statements SINUS RHYTHM INCOMPLETE RIGHT BUNDLE BRANCH BLOCK NSTTW ABNORMALITIES SIMILAR TO 10/11/16 Electronically Signed On 11-15-2018 8:49:59 EDT by Calin Carbajal
--- NOTE | 2018-11-15 08:58 | ECGEPIP ---
Stationary ECG Study [facility] - ED Test Date: 2018-11-14 Pat Name: NIECY RODRIGUEZ Department: Room: [place] [id number] Gender: M Payroll Director: LAURA : 1955 Requested By: CRISTIAN Cuello Order Number: [id number] Reading MD: Calin Carbajal Measurements Intervals [place] Rate: 58 P: 33 TN: 151 QRS: -1 QRSD: 107 T: -1 QT: 394 QTc: 387 Interpretive Statements SINUS BRADYCARDIA WITH SINUS ARRHYTHMIA INCOMPLETE RIGHT BUNDLE BRANCH BLOCK NSTTW ABNORMALITIES SIMILAR TO PRIOR ON SAME DATE Electronically Signed On 11-15-2018 8:58:15 EDT by Calin Carbajal
[2018-11-15] MEDS ORDERED: SPIRONOLACTONE 12.5MG PER 1/2 TABLET PO SCH (09:00)
[2018-11-15] MEDS ORDERED: CARVedilol 3.125 MG TAB PO SCH (09:00)
[2018-11-15] MEDS ORDERED: ZOCO40TA PO (09:14)
[2018-11-15] MEDS ORDERED: CLOP75TA2 PO (09:14)
--- NOTE | 2018-11-15 19:02 | DSES ---
DATE OF ADMISSION: 11/15/2018 DATE OF DISCHARGE: 11/15/2018 CROP AND SOIL SCIENTIST: Preet Rogers MD covering for Dr. Nieto. PRIMARY CARE PROVIDER: Danni Mclean FINAL DIAGNOSES: Qpv-KM-itpiedsmz myocardial infarction (NSTEMI). Atrial fibrillation with rapid ventricular response. Chest pain. Hypertension. Dyslipidemia. HISTORY OF PRESENT ILLNESS: This is a 63-year-old male patient with underlying medical history of hypertension, dyslipidemia, obesity, paroxysmal atrial fibrillation, heart ablation five years ago, follows up with Dr. Nieto. Stress test done five years ago was negative. Patient presented to the emergency department with nausea, vomiting, diaphoresis and stated that he felt his heart was racing. The patient was found to be in atrial fibrillation with rapid ventricular response. Patient had a bowel movement and he states symptoms immediately resolved. Denies any chest pain, fever or chills initially. In the emergency room, the patient's initial troponin was negative. HOSPITAL COURSE: Patient's subsequently was admitted to the hospital for overnight observation and further workup for a-fib with rapid ventricular response (RVR). TSH was appreciated to be normal. Overnight patient's troponin became elevated at 0.5 and 0.7. Patient also reported right upper abdomen, right lower chest wall pain with no relieving exacerbating factor that is sharp. Right upper quadrant ultrasound was negative. Liver function tests and bilirubin were negative. Patient reported mild nausea. EKG was appreciated. Telemetry was appreciated. Case was discussed with Dr. Rogers who recommended patient to be transferred for cardiac catheterization. Subsequently, arrangements were made for patient to be transferred for cardiac catheterization. Patient is placed on Lovenox, aspirin, Plavix and statin. Case was discussed with [facility] Dr. Diane who accepted the patient to [facility] for further cardiac workup. Patient currently reported only 2 out of 10 chest discomfort. Denies any shortness of breath. VITAL SIGNS: Temperature 97.5, pulse 56, respirations 18, blood pressure 120/88, pulse oximetry 96% on room air. LABORATORY: WBC 17.7, hemoglobin and hematocrit 14.8/43, platelets 261. Sodium 138, potassium 3.8, chloride 104, bicarbonate 26, BUN 17, creatinine 1.09. Cardiac enzymes 0.1, 0.54, 0.7, 0.65. TSH 2.04. GENERAL: Patient alert, comfortable. In no acute distress. HEENT: Normocephalic, atraumatic. PULMONARY: Bilateral clear. CARDIAC: Regular. S1, S2. ABDOMEN: Soft, nontender, positive bowel sounds. EXTREMITIES: No clubbing, cyanosis or edema. EKG shows sinus rhythm with T wave inversion lead [address] No other ST segment changes. DISCHARGE MEDICATION - Plavix 75 mg by mouth daily - aspirin 81 mg by mouth daily - Zocor 40 mg by mouth at bedtime - Coreg 3.125 mg by mouth twice a day - loratadine by mouth every p.m. - spironolactone 12.5 mg by mouth daily DISCHARGE INSTRUCTIONS: Please followup with cardiology at [facility] for further recommendation, possible cardiac catheterization as per interventional cardiology at [facility]. Please followup with primary care provider and supervisor grinding after discharge. Return to the hospital if symptoms worsen. Further management as per cardiology at the accepting facility. Time spent arranging and coordinating discharge: 45 minutes.
[2018-11-15] MEDS ORDERED: ASPIRIN 81 MG ENTERIC TAB PO SCH (21:00)
[2018-11-15] MEDS ORDERED: SIMVASTATIN 20 MG TAB PO SCH (21:00)
[2018-11-15] MEDS ORDERED: SIMVASTATIN 40 MG TAB PO SCH (21:00)
[2018-11-16] MEDS ORDERED: CLOPIDOGREL 75 MG TAB PO SCH (09:00)
== END 2018-11-15 10:40 | disposition short-term general hospital (02) | DRG 282 ==
LOC: M ED 17:39 → M ED INP 11-15 01:16 → M PCU 11-15 02:56
PROVIDERS: ADMIT Internal Medicine; ATTEND Hospitalist
DX: I21.A1 Myocardial infarction type 2 (principal); I48.0 Paroxysmal atrial fibrillation; I10 Essential (primary) hypertension; E66.9 Obesity, unspecified; E78.5 Hyperlipidemia, unspecified; Z79.82 Long term (current) use of aspirin; Z79.899 Other long term (current) drug therapy; Z68.32 Body mass index [BMI] 32.0-32.9, adult

== ENCOUNTER → 2019-07-19 | Outpatient (CLI) | payer OTHER ==
[~2019-07-19] MED LIST changes: +ASPI81TA26 PO; +CARV3.12; +CARV3.12 PO; +KONS100P4 PO; +LORA24TA PO; -METAPKT PO; +ZOCO40TA PO
== END ==
LOC: M LAB 16:07
PROVIDERS: ATTEND Internal Medicine Gastroenterology
DX: K58.0 Irritable bowel syndrome with diarrhea (principal)

== ENCOUNTER → 2019-07-21 | Outpatient (REF) | payer OTHER | LOC: M LAB REF 14:34 | PROVIDERS: ATTEND Internal Medicine Gastroenterology | DX: K58.0 Irritable bowel syndrome with diarrhea (principal) ==

== ENCOUNTER → 2019-08-16 | Outpatient (CLI) | payer OTHER ==
[~2019-08-16] MED LIST changes: -SIMV20TA2 PO; +SIMV20TA22 PO
--- NOTE | 2019-08-16 08:33 | REP ---
CT paranasal sinuses: 08/16/2019. Indication: Sinusitis. Comparison: None. Technique: Unenhanced axial CT images of the paranasal sinuses were performed with coronal reconstructions provided. Findings: There are no air-fluid levels or frothy secretions within the paranasal sinuses. There is minimal periosteal mucosal thickening within the anterior ethmoid air cells and inferior right maxillary sinus. The sinonasal passageways are patent. There is mild leftward deviation of the nasal septum. The mastoid air cells are essentially clear. No significant ocular, intraorbital or intracranial abnormalities are detected. Impression: Minimal chronic-appearing paranasal sinus mucosal disease as described. Electronically Signed by Bill Thompson DO 08/16/2019 08:24 A
== END ==
LOC: M RAD 07:15
PROVIDERS: ATTEND Otolaryngology
DX: J34.2 Deviated nasal septum (principal); J32.4 Chronic pansinusitis; J30.9 Allergic rhinitis, unspecified

== ENCOUNTER 2019-12-31 21:04 | Emergency (ER) | payer OTHER ==
[~2019-12-31] VITALS: Ht 180.3 cm; Wt 112.0 kg
[2019-12-31 21:06] VITALS: BP 149/74
[2019-12-31] MEDS ORDERED: ASPI-1 PO (21:43)
[2019-12-31] MEDS ORDERED: GABA600T4 (21:43)
[2019-12-31 22:17] LABS: BASO # 0.1 10^3/uL (0.0-0.2); BASO % 0.7 % (0.0-1.0); EOS # 0.3 10^3/uL (0.0-0.5); EOS % 3.7 % (0.0-3.0); HEMATOCRIT 41.9 % (42.0-52.0); HEMOGLOBIN 14.2 g/dl (13.5-17.5); LYMPH % 34.5 % (24.0-44.0); MEAN CORPUSCULAR HEMOGLOBIN 29.5 pg (27.0-33.0); MEAN CORPUSCULAR HGB CONC 33.9 g/dl (32.0-36.5); MEAN CORPUSCULAR VOLUME 86.9 fl (80.0-96.0); MONO # 0.8 10^3/uL (0.0-0.8); MONO % 9.4 % (0.0-5.0); NEUTROPHILS # 4.4 10^3/uL (1.5-8.5); NEUTROPHILS % 51.1 % (36.0-66.0); PLATELET COUNT, AUTOMATED 259 10^3/uL (150-450); RED BLOOD COUNT 4.82 10^6/uL (4.30-6.10); WHITE BLOOD COUNT 8.6 10^3/uL (4.0-10.0)
[2019-12-31 22:41] LABS: ERYTHROCYTE SEDIMENTATION RATE 8 mm/hr (0-20)
--- NOTE | 2019-12-31 22:42 | REPVR ---
PROCEDURE INFORMATION: Exam: US Duplex Lower Extremity Veins, Bilateral Exam date and time: 12/31/2019 10:32 PM Age: 64 years old Clinical indication: Edema, localized; Lower extremity, bilateral; Additional info: Swelling R/O dvt TECHNIQUE: Imaging protocol: Real-time duplex ultrasound of the extremities with 2-D salvador scale, color Doppler flow and spectral waveform analysis with image documentation. Complete exam focused on the bilateral lower extremity veins. COMPARISON: No relevant prior studies available. FINDINGS: Right deep veins: Unremarkable. The common femoral, femoral, proximal profunda femoral and popliteal veins are patent without thrombus. Normal Doppler waveforms. Normal compressibility and/or augmentation response. Right superficial veins: Saphenofemoral junction is patent without thrombus. Left deep veins: Unremarkable. The common femoral, femoral, proximal profunda femoral and popliteal veins are patent without thrombus. Normal Doppler waveforms. Normal compressibility and/or augmentation response. Left superficial veins: Saphenofemoral junction is patent without thrombus. Soft tissues: Bilateral lower leg edema. IMPRESSION: Bilateral lower leg edema. No DVT. Electronically signed by: Jasson Rodriguez On 12/31/2019 22:41:13 PM
[2019-12-31 22:47] LABS: BLOOD UREA NITROGEN 19 MG/DL (7-18); C REACTIVE PROTEIN QUANTITATIV < 0.30 MG/DL (0.00-0.30); CALCIUM LEVEL 8.8 MG/DL (8.8-10.2); CARBON DIOXIDE LEVEL 31 MEQ/L (21-32); CHLORIDE LEVEL 104 MEQ/L (98-107); CK-MB VALUE MASS 1.4 NG/ML (<3.6); CPK CREATINE PHOSPHOKINASE 143 U/L (39-308); CREATININE FOR GFR 1.03 MG/DL (0.70-1.30); GLOMERULAR FILTRATION RATE > 60.0 (>49); GLUCOSE, FASTING 95 MG/DL (70-100); MB/CK RELATIVE INDEX 0.98 (< OR =4); NT-PRO BNP 23 PG/ML (<125); POTASSIUM SERUM 4.8 MEQ/L (3.5-5.1); SODIUM LEVEL 141 MEQ/L (136-145); TROPONIN I 0.03 NG/ML (< 0.10)
[2019-12-31] MEDS ORDERED: LASI20TA3 PO (23:02)
--- NOTE | 2020-01-01 08:08 | ECGEPIP ---
[facility] - ED Test Date: 2019-12-31 Pat Name: NIECY RODRIGUEZ Department: Room: - Gender: Male Field Identification Specialist: : [id number] Requested By: JOSUE SHER Order Number: [id number] Reading MD: Darcie Gutierrez Measurements Intervals [place] Rate: 55 P: 32 WV: 135 QRS: -14 QRSD: 112 T: 10 QT: 388 QTc: 372 Interpretive Statements SINUS BRADYCARDIA MODERATE INTRAVENTRICULAR CONDUCTION DELAY SIMILAR 11/14/18 Electronically Signed on 01-01-2020 8:08:26 EDT by Darcie Gutierrez
== END 2019-12-31 23:16 | disposition home or self-care (01) ==
LOC: M ED 21:04
DX: R60.0 Localized edema (principal); I48.91 Unspecified atrial fibrillation; Z79.899 Other long term (current) drug therapy

== ENCOUNTER → 2020-02-06 | Outpatient (CLI) | payer OTHER ==
[~2020-02-06] MED LIST changes: +ASPI-1 PO; +CARV6.25 PO; +CYCL-707 PO; +FURO20TA2 PO; +GABA600T4 PO; +LASI20TA3 PO
== END ==
LOC: M LABSMTC 10:29
PROVIDERS: ATTEND Anesthesiology
DX: Z01.818 Encounter for other preprocedural examination (principal); Z11.59 Encounter for screening for other viral diseases
CPT/HCPCS: C9803; U0003

== ENCOUNTER 2020-02-09 11:01 | Inpatient (IN) | payer OTHER ==
--- NOTE | 2020-02-06 20:54 | HPE ---
DATE OF ANTICIPATED ADMISSION: 02/09/2020 ATTENDING PHYSICIAN: Dr. Tommie Peoples CHIEF COMPLAINT: Left lower extremity radiculopathy and discomfort. HISTORY: This is a pleasant 64-year-old male patient with progressively worsening lumbar spinal stenosis causing left lower extremity discomfort. He has failed to improve with conservative treatment and has consented for elected for surgical intervention for his continued symptoms. He has consented for a left L4-5 unilateral laminectomy and fusion by Dr. Tommie Peoples. ALLERGIES: TETRACYCLINE. CURRENT MEDICATIONS: - carvedilol 6.25 mg - fluticasone nasal spray as needed - loratadine 10 mg - spironolactone 25 mg - gabapentin 300 mg - aspirin 325 mg - atorvastatin 20 mg - dicyclomine 20 mg PAST MEDICAL HISTORY: Paroxysmal atrial fibrillation, status post ablation. Hypertension. Hyperlipidemia. Osteoarthritis. Obstructive sleep apnea. Erectile dysfunction. Hypertensive heart disease. SURGICAL HISTORY: Cardiac ablation 2013. Tonsillectomy with adenoidectomy 4th grade. FAMILY HISTORY: Father myocardial infarction (OR). Mother OR. SOCIAL HISTORY: The patient does not smoke or use alcohol. REVIEW OF SYSTEMS: Denies fever, chills, chest pain, shortness breath, nausea, vomiting, diarrhea, recent upper respiratory or urinary tract infection symptoms. PHYSICAL EXAM: Blood pressure 132/61, pulse 86, respirations 14. He is normocephalic, atraumatic. Neck is supple and nontender with no lymphadenopathy or jugular venous distention (JVD). S1, S2 auscultated with no murmurs, rubs or gallops. Regular rate and rhythm. Lungs: Clear to auscultation bilaterally with no wheezes, rales, rhonchi. Abdomen: Soft, nontender. Lumbar spine with intact overlying skin, no obvious deformity. No rashes. Bilateral lower extremities have full active range of motion and are well perfused. LABS: PT 10.8, INR 1, platelet count 267. IMPRESSION: Symptomatic lumbar spondylolisthesis with radiculopathy. PLAN: Consented for left L4-5 unilateral laminectomy with iliac graft and donor bone. Patient has discontinued aspirin, knows medication to hold prior to surgery. He will be nothing by mouth after midnight the night before. He has taken his COVID-19 test today and pending those results, will go ahead with surgery on 02/09/2020.
[~2020-02-09] VITALS: Ht 182.9 cm; Wt 110.9 kg
[~2020-02-09 11:01] MED LIST changes: -CARV6.25 PO; -CYCL-707 PO; -FURO20TA2 PO; +GABAPENTIN 300 MG CAP PO ONE; +LIDOCAINE 2% 100MG/5ML SDV (FOR ANES.) As Ordered ONE; +LR 1,000 ML IV ONE; +MIDAZOLAM INJ 2MG/2ML VIAL (J2250 PER 1MG) As Ordered ONE; +PERCOCET 5MG/325MG TAB PO ONE; +ROCURONIUM BROMIDE 50 MG/5 ML VIAL As Ordered ONE; +dexameTHASONE 4 MG/ML 1ML VIAL (J1100 PER 1MG) As Ordered ONE; +fentaNYL 250 MCG/5 ML INJECTION (J3010) As Ordered ONE; +propofoL 200 MG/20 ML VIAL As Ordered ONE
[2020-02-09] MEDS ORDERED: ceFAZolin SOD 1 GM in D5W MINI-BAG PLUS 50 ML IV ONE (12:00)
[2020-02-09] MEDS ORDERED: ceFAZolin SOD 2 GM in IV 1 EA IV ONE (12:00)
[2020-02-09] MEDS ORDERED: THROMBIN SOLN 20,000 UNITS KIT As Ordered ONE (14:27)
[2020-02-09] MEDS ORDERED: BUPIVACAINE/EPIN 0.25% 30 ML VIAL As Ordered ONE (14:27)
[2020-02-09] MEDS ORDERED: EPINEPHrine INJ 1 MG/ML 1ML AMP As Ordered ONE (14:28)
[2020-02-09] MEDS ORDERED: TRANEXAMIC ACID 100 MG/ML 10ML VIAL As Ordered ONE (14:28)
[2020-02-09] MEDS ORDERED: BUPIVACAINE HCL 0.5% 10ML VIAL As Ordered ONE (14:28)
[2020-02-09] MEDS ORDERED: VANCOMYCIN 500MG/10ML VIAL As Ordered ONE (14:28)
[2020-02-09] MEDS ORDERED: BUPIVACAINE LIPOSOME/PF 1.3% 20ML VIAL (13.3MG/ML)(EXPAREL)(C9290 PER1MG) As Ordered ONE (14:28)
[2020-02-09] MEDS ORDERED: BACITRACIN PWD 50,000 UNITS VIAL As Ordered ONE (14:29)
[2020-02-09] MEDS ORDERED: CelecoXIB (CeleBREX) 100 MG CAP PO ONE (15:00)
[2020-02-09] MEDS ORDERED: ROCURONIUM BROMIDE 50 MG/5 ML VIAL As Ordered ONE ×2 (16:03→17:15)
[2020-02-09] MEDS ORDERED: GLYCOPYRROLATE INJ 0.2 MG/ML 2 ML VIAL As Ordered ONE (16:03)
[2020-02-09] MEDS ORDERED: ONDANSETRON 4MG/2ML VIAL As Ordered ONE (16:40)
[2020-02-09] MEDS ORDERED: SUGAMMADEX SODIUM 500 MG/5 ML VIAL (BRIDION) As Ordered ONE (16:40)
[2020-02-09] MEDS ORDERED: ACETAMINOPHEN 1000MG 100ML IV BTL (OFIRMEV) (J0131 PER 10MG) As Ordered ONE (16:51)
[2020-02-09] MEDS ORDERED: PHENYLephrine HCL 500 MCG/5 ML (100MCG/ML) SYRINGE (J2370) As Ordered ONE (17:57)
[2020-02-09] MEDS ORDERED: ePHEDrine SULFATE 25 MG/5 ML(5MG/ML) SYRINGE As Ordered ONE (17:58)
[2020-02-09] MEDS ORDERED: ACETAMINOPHEN TAB 650MG DOSE (2X325MG) PO PRN (21:00)
[2020-02-09] MEDS ORDERED: PROMETHAZINE INJ 25 MG/ML VIAL (J2550) IV PRN (21:00)
[2020-02-09] MEDS ORDERED: MORPHINE 4 MG/ML 1ML VIAL/SYRINGE (J2270) IV PRN (21:00)
[2020-02-09] MEDS ORDERED: PERCOCET 5MG/325MG TAB PO PRN (21:00)
[2020-02-09] MEDS ORDERED: ONDANSETRON 4MG/2ML VIAL IV PRN (21:30)
[2020-02-09] MEDS ORDERED: HYDROMORPHONE HCL 0.5 MG/ 0.5 ML SYRINGE (J1170 PER 1) IV PRN (21:30)
[2020-02-09] MEDS ORDERED: LR 1,000 ML IV SCH (21:30)
[2020-02-09] MEDS: fentaNYL 100 MCG/2 ML INJECTION (J3010) IV PRN ×2 (21:32→21:49)
[2020-02-09] MEDS: GABAPENTIN 300 MG CAP PO SCH (21:32)
[2020-02-09] MEDS: oxyCODONE 5MG TAB PO PRN ×2 (21:36→22:05)
--- NOTE | 2020-02-09 22:06 | HPEPDOC ---
[facility] Medical History & Physical Date of Admission Feb 09, 2020 Date of Service: Feb 09, 2020 History and Physical CHIEF COMPLAINT: Status post spinal fusion HISTORY OF PRESENT ILLNESS: 64-year-old male with past medical history obstructive sleep apnea, atrial fibrillation status post ablation, hypertension, and hyperlipidemia is being admitted after undergoing spinal fusion. Hospitalist service was requested for medical consultation. Patient is seen in PACU, he is just waking up from anesthesia and getting oriented, unable to provide any useful information regarding history and current surgical intervention. He reports lack pain, no other complaints at this time. 10 point review of system is negative except for above PAST MEDICAL HISTORY: 1. Obstructive sleep apnea. 2. Atrial fibrillation. 3. Hypertension. 4. Hyperlipidemia 5. Spinal stenosis PAST SURGICAL HISTORY: 1. Spinal fusion. 2. Cardiac ablation. SOCIAL HISTORY: Unable to obtain FAMILY HISTORY: Unable to obtain ALLERGIES: Please see below. HOME MEDICATIONS: Please see below. PHYSICAL EXAMINATION: VITAL SIGNS: Please see below. GENERAL: No distress HEENT: Normocephalic, atraumatic, moist mucous membranes NECK: Supple CARDIOVASCULAR EXAMINATION: S1, S2, no murmurs RESPIRATORY EXAMINATION: Clear to auscultation, no wheezing ABDOMINAL EXAMINATION: Soft, nontender, nondistended, positive bowel sounds BACK: KAREN drain with sanguinous drainage noted EXTREMITIES: No edema SKIN: No rash NEUROLOGICAL EXAMINATION: no focal deficits PSYCHIATRIC EXAMINATION: Calm LABORATORY DATA: See below. MICROBIOLOGY: Please see below. ASSESSMENT: 64-year-old male with past medical history obstructive sleep apnea, atrial fibrillation, spinal stenosis, hypertension and hyperlipidemia is being admitted after spinal fusion. PLAN: 1. Status post spinal fusion. Postop management as per primary team 2. Obstructive sleep apnea. Continue home CPAP 3. Atrial fibrillation. Status post cardiac ablation, not on antiplatelet medication. 4. Hypertension. Continue Coreg and spironolactone Vital Signs Vital Signs Date Time Temp Pulse Resp B/P (MAP) Pulse Ox O2 Delivery O2 Flow Rate FiO2 02/09/20 21:09 98.3 81 18 132/75 (94) 96 Non-Rebreather 10 Home Medications Scheduled Aspirin (Aspirin) 325 Mg Tablet, 1 TAB PO DAILY for fever Carvedilol (Carvedilol) 3.125 Mg Tab, 3.125 MG PO BID Furosemide (Lasix) 20 Mg Tablet, 1 TAB PO DAILY Loratadine/Pseudoephedrine (Loratadine-D 24Hr Tablet) 1 Tab Tab, 1 TAB PO QPM TAKES AT 1800 Spironolactone (Spironolactone) 25 Mg Tab, 12.5 MG PO DAILY Miscellaneous Medications Gabapentin (Gabapentin) 600 Mg Tablet Allergies Coded Allergies: tetracycline (Verified Adverse Reaction, Unknown, itching, 02/02/20) A-FIB/CHADSVASC A-FIB History Current/History of A-Fib/PAF?: Yes Current PO Anticoag Therapy: No Treatment Reason Anticoagulant not given: Not indicated/[id number] ERASMO COWAN MD Feb 09, 2020 22:06
[2020-02-09 22:45] VITALS: BP 132/57
[2020-02-09] MEDS ORDERED: CARV6.25 PO (22:56)
[2020-02-09] MEDS ORDERED: FURO20TA2 PO (22:56)
[2020-02-09 23:15] VITALS: BP 131/64
[2020-02-09] MEDS ORDERED: DICYCLOMINE 10 MG CAP PO PRN (23:15)
[2020-02-09 23:45] VITALS: BP 129/72
[2020-02-09] MEDS: ceFAZolin SOD 2 GM in IV 1 EA IV SCH (23:52)
[2020-02-10] VITALS (8 sets, daily range): BP systolic 114–151; BP diastolic 60–84
[2020-02-10] MEDS: CYCLOBENZAPRINE 10MG TABLET PO PRN (00:55)
[2020-02-10] MEDS: PERCOCET 5MG/325MG TAB PO PRN ×4 (03:44→20:23)
[2020-02-10] MEDS: ceFAZolin SOD 2 GM in IV 1 EA IV SCH ×2 (03:44→09:06)
[2020-02-10] MEDS ORDERED: CARVedilol 3.125 MG TAB PO SCH (09:00)
[2020-02-10] MEDS: GABAPENTIN 300 MG CAP PO SCH ×2 (09:07→20:24)
[2020-02-10] MEDS: CARVedilol 6.25 MG TAB PO SCH ×2 (09:07→20:24)
[2020-02-10] MEDS: LORATADINE 10 MG TAB PO SCH (09:07)
[2020-02-10] MEDS: MOM 30ML SUSPENSION UDC PO SCH ×2 (09:07→20:23)
[2020-02-10] MEDS: SPIRONOLACTONE 12.5MG PER 1/2 TABLET PO SCH (09:08)
[2020-02-10] MEDS: METAMUCIL (PSYLLIUM) PACKET PO SCH (09:08)
[2020-02-10] MEDS: ATORVASTATIN 20 MG TAB PO SCH (09:08)
--- NOTE | 2020-02-10 12:17 | IPNPDOC ---
Subjective Date Seen The patient was seen on 02/10/20. Subjective Chief Complaint/HPI Braden is comfortable in no distress and wishes to go home today General: Denies: ROS Unobtainable, Chills, Night Sweats, Fatigue, Malaise, Normal Appetite, Other Symptoms Constitutional: Denies: Chills, Fever, Malaise, Night Sweats, Weakness, Fatigue, Weight Loss, Lethargy, Other Eyes: Denies: Pain, Vision change, Conjunctivae inflammation, Eyelid inflammation, Redness, Other ENT: Denies: Head Aches, Ear Pain, Dysphagia, Sinus Congestion, Post Nasal Drip, Sore Throat, Epistaxis, Other Symptoms Pulmonary: Denies: Dyspnea, Cough, Pleuritic Chest Pain, Other Symptoms Cardiovascular: Denies: Chest Pain, Palpitations, Orthopnea, Paroxysmal Noc. Dyspnea, Edema, Lt Headedness, Other Symptoms Gastrointestinal: Denies: Nausea, Vomiting, Abdominal Pain, Diarrhea, Constipation, Melena, Hematochezia, Other Symptoms Genitourinary: Denies: Dysuria, Frequency, Incontinence, Hematuria, Retention, Other Symptoms Hematologic: Denies: Bruising, Bleeding Excessively, Petecchia, Purpura, Enlarged Lymph Nodes, Other Hematologic Endocrine: Denies: Polydipsia, Polyphagia, Polyuria, Heat Intolerance, Cold Intolerance, Other Endocrine Sx Musculoskeletal: Reports: Back Pain Neurological: Denies: Weakness, Numbness, Incoordination, Change in speech, Co nfusion, Seizures, Other Symptoms Psych: Denies: Mood Normal, Anxiety, Depression, Memory Issues, Thoughts of Self Harm, Anger, Thoughts of Harming Other, Other Psych Objective Physical Examination General Exam: Positive: Alert, Cooperative Eye Exam: Positive: PERRLA, Conjunctiva & lids normal ENT Exam: Positive: Atraumatic, Mucous membr. moist/pink Neck Exam: Positive: Supple Chest Exam: Positive: Clear to auscultation, Normal air movement Heart Exam: Positive: Rate Normal, Normal S1, Normal S2 Abdomen Exam: Positive: Normal bowel sounds, Soft Extremity Exam: Positive: Normal pulses Skin Exam: Positive: Nl turgor and temperature Neuro Exam: Positive: Strength at 5/5 X4 ext, Sensation Intact, Cranial Nerves 3-12 NL Psych Exam: Positive: Oriented x 3 Assessment /Plan Problems (1) S/P spinal fusion Problem Text: 64-year-old male with past medical history obstructive sleep apnea, atrial fibrillation, spinal stenosis, hypertension and hyperlipidemia is being admitted after spinal fusion. Status post spinal fusion, postop day #1 Continue pain management and physical therapy as per orthopedic (2) COPD (chronic obstructive pulmonary disease) Status: Chronic Problem Text: Continue home meds (3) Atrial fibrillation Status: Chronic Problem Text: Status post cardio ablation Continue home meds (4) HTN (hypertension) Status: Chronic Problem Text: Under well control. Continue home meds Plan/VTE VTE Prophylaxis Ordered?: Yes VS, I&O, 24H, Fishbone Vital Signs/I&O Vital Signs Date Time Temp Pulse Resp B/P (MAP) Pulse Ox O2 Delivery O2 Flow Rate FiO2 02/10/20 10:40 18 02/10/20 10:00 98.1 100 151/79 (103) 92 Room Air 02/09/20 22:12 2 I&O- Last 24 Hours up to 6 AM 02/10/20 06:00 Intake Total 5910 ml Output Total 875 ml Balance 5035 ml JUAN C ERICKSON MD Feb 10, 2020 12:17
[2020-02-11] MEDS: CYCLOBENZAPRINE 10MG TABLET PO PRN (02:16)
[2020-02-11 06:00] VITALS: BP 145/75
[2020-02-11] MEDS: MOM 30ML SUSPENSION UDC PO SCH (08:10)
[2020-02-11] MEDS: SPIRONOLACTONE 12.5MG PER 1/2 TABLET PO SCH (08:10)
[2020-02-11] MEDS: LORATADINE 10 MG TAB PO SCH (08:10)
[2020-02-11] MEDS: GABAPENTIN 300 MG CAP PO SCH (08:10)
[2020-02-11] MEDS: ATORVASTATIN 20 MG TAB PO SCH (08:10)
[2020-02-11] MEDS: METAMUCIL (PSYLLIUM) PACKET PO SCH (08:11)
[2020-02-11 08:12] VITALS: BP 124/68
[2020-02-11] MEDS: CARVedilol 6.25 MG TAB PO SCH (08:12)
--- NOTE | 2020-02-11 10:05 | IPNPDOC ---
Subjective Date Seen The patient was seen on 02/11/20. Subjective Chief Complaint/HPI No new complaints, hopefully will be discharged home today General: Denies: ROS Unobtainable, Chills, Night Sweats, Fatigue, Malaise, Normal Appetite, Other Symptoms Constitutional: Denies: Chills, Fever, Malaise, Night Sweats, Weakness, Fatigue, Weight Loss, Lethargy, Other Pulmonary: Denies: Dyspnea, Cough, Pleuritic Chest Pain, Other Symptoms Cardiovascular: Denies: Chest Pain, Palpitations, Orthopnea, Paroxysmal Noc. Dyspnea, Edema, Lt Headedness, Other Symptoms Gastrointestinal: Denies: Nausea, Vomiting, Abdominal Pain, Diarrhea, Constipation, Melena, Hematochezia, Other Symptoms Musculoskeletal: Denies: Neck Pain, Back Pain, Shoulder Pain, Arm Pain, Hand Pain, Leg Pain, Foot Pain, Joint Pain, Muscle Pain, Spasms, Other Symptoms Neurological: Denies: Weakness, Numbness, Incoordination, Change in speech, Confusion, Seizures, Other Symptoms Objective Physical Examination General Exam: Positive: Alert, Cooperative Eye Exam: Positive: PERRLA, Conjunctiva & lids normal ENT Exam: Positive: Atraumatic, Mucous membr. moist/pink Neck Exam: Positive: Supple Chest Exam: Positive: Clear to auscultation, Normal air movement Heart Exam: Positive: Rate Normal, Normal S1, Normal S2 Abdomen Exam: Positive: Normal bowel sounds, Soft Extremity Exam: Positive: Normal pulses Skin Exam: Positive: Nl turgor and temperature Neuro Exam: Positive: Strength at 5/5 X4 ext, Sensation Intact, Cranial Nerves 3-12 NL Psych Exam: Positive: Oriented x 3 Assessment /Plan Problems (1) S/P spinal fusion Problem Text: 64-year-old male with past medical history obstructive sleep apnea, atrial fibrillation, spinal stenosis, hypertension and hyperlipidemia is being admitted after spinal fusion. Status post spinal fusion, postop day #2 Continue pain management and physical therapy as per orthopedic Possible discharge home today (2) COPD (chronic obstructive pulmonary disease) Status: Chronic Problem Text: Continue home meds (3) Atrial fibrillation Status: Chronic Problem Text: Status post cardio ablation Continue home meds (4) HTN (hypertension) Status: Chronic Problem Text: Under well control. Continue home meds Plan/VTE VTE Prophylaxis Ordered?: Yes VS, I&O, 24H, Fishbone Vital Signs/I&O Vital Signs Date Time Temp Pulse Resp B/P (MAP) Pulse Ox O2 Delivery O2 Flow Rate FiO2 02/11/20 08:12 86 124/68 02/11/20 06:00 100.1 18 94 Room Air 02/09/20 22:12 2 I&O- Last 24 Hours up to 6 AM 02/11/20 05:59 Intake Total 3120 ml Output Total 1615 ml Balance 1505 ml JUAN C ERICKSON MD Feb 11, 2020 10:05
[2020-02-11] MEDS ORDERED: CYCL-707 PO (11:18)
--- NOTE | 2020-02-12 07:55 | REP ---
Clinical: Spinal stenosis. Technique: Intraoperative fluoroscopic imaging using portable C-arm technique. Findings: The patient appears to be status post posterior L4-5 fixation and discectomy. Images suggest stable alignment. Total fluoroscopic time 4 minutes 38 seconds. Impression: Status post satisfactory posterior fixation L4-5. Electronically Signed by Anatoliy Dacosta MD 02/12/2020 07:47 A
--- NOTE | 2020-02-14 07:15 | RO ---
DATE OF PROCEDURE: 02/09/2020 PREOPERATIVE DIAGNOSIS: Lumbar spondylolisthesis at L4-5, lumbar spinal stenosis with neurogenic claudication on the left due to facet arthropathy at L4-5. POSTOPERATIVE DIAGNOSIS: Lumbar spondylolisthesis at L4-5, lumbar spinal stenosis with neurogenic claudication on the left due to facet arthropathy at L4-5. PROCEDURE PERFORMED: Left unilateral laminectomy for decompression of thecal sac and lateral recess exiting traversing nerve roots, additional L5 for decompression of the traversing nerve root, L4-5 transforaminal lumbar interbody fusion combined technique was accomplished, L4 nonsegmental bilateral pedicle instrumentation was accomplished, harvest and placement of left morselized iliac crest bone graft was accomplished, placement of L4-5 biomechanical device interbody was accomplished, use of cancellous bone graft 15 mL and 5 mL demineralized bone matrix putty was accomplished. SURGEON: Dr. Tommie Peoples ORACLE APPLICATIONS ANALYST: Lupillo Bell, physician visitor services assistant ESTIMATED BLOOD LOSS: 300 mL, replaced with crystalloid. NO COMPLICATIONS: DRAINS: 7 flat drain was exiting superolaterally to the patient's left. INDICATIONS: Intractable discomfort radiating down the left lower extremity with MRI evidence of facet arthropathy at L4-5 with spinal stenosis and spondylolisthesis. The patient has elected for operative intervention. CONSENT: Reviewed in detail with the patient including a xochitl discussion of the pathology involved, the procedure proposed, alternatives including doing nothing or use of medications or epidurals, and risks including, but not limited to pain, failure, incomplete relief, nerve injury, need for more surgery, infection, bleeding, blood loss, blood clots and other issues. The patient agrees to proceed. COMPONENTS USED: Include the DePuy Viper percutaneous pedicle screw system 50 mm x 7.0 screws x4, 55 mm connecting cammie x 1, 50 mm connecting cammie x1, 11 mm x 32 mm CASCADIA titanium cage. OPERATIVE COURSE: Identified in holding area, site and side verified, brought to the operating room. Once he was sterilely prepped, draped and positioned in the usual fashion on the Vishal frame, we did accomplish a time out. Next, the incision was based on bony landmarks. Mr. Henry is a large man with elevated BMI and the incision for that reason was approximately 10 cm long. It was to the left of midline two fingerbreadths and developed through skin and subcuticular tissues. The posterior lumbar fascia was sharply reflected off the spinous processes of 4 and 5. Dissection continued along the L4 and L5 lamina and also up to the L3-4 facet complex to expose the L4 transverse process. Next, bur was utilized to drill a divot in posterior lamina at 4-5. Cross table lateral x-ray was obtained to verify our position. Next, irrigation was accomplished. Dissection continued exposing the transverse process of 4 and 5 and exposing the L5 lamina further on the patient's left. Next, at this stage, we placed percutaneous pedicle screws on the patient's right side. Fluoroscopy was utilized to help plan incisions. The incisions were outlined with a marking pen and infiltrated with 0.25% Marcaine with epinephrine, made with a 10 blade knife and developed down through skin and subcuticular tissues under fluoroscopic visualization to facilitate docking at the L4 and L5 pedicles. Next, blunt dilator was utilized. The Viper pedicle screw system was utilized. We docked the Viper pedicle screw system with the lateral aspect of the L4 pedicle and advanced it by tapping and advancing the wire complex in the usual fashion. Fluoroscopic verification of position of the wire was accomplished. When the wire had crossed into the vertebral body, the biplanar fluoroscopy was utilized to verify it was in the vertebral body on the AP and lateral planes. Next, once this was accomplished, the wire was held secure and the 50 mm x 7 mm pedicle screw was advanced through the pedicle at 4 into the vertebral body. Next, the L5 pedicle was cannulated in the same fashion and again verified fluoroscopically. Next, the 55 mm connecting cammie was passed through the percutaneous pedicle screw construct. I placed end caps. The superior end cap was not tightened all the way intentionally. Next, on the contralateral side Mr. Bell utilized retractors to pull the soft tissue laterally. I then opened fascial incisions over the pedicle at 4 and 5 and placed the percutaneous Viper trocar/Jamshidi against the lateral aspect of the pedicle at 5. Next, Jamshidi was utilized to cannulate the pedicle fluoroscopically in AP and lateral biplanar fluoroscopy. I then removed the stylus from the Jamshidi and placed the percutaneous wire into the pedicle at 5. I then utilized a 6.0 tap to tap the pedicle tract. No screw was inserted. The wire and tap were removed. In a similar fashion, I cannulated the pedicle at 4 with the Jamshidi needle followed by the guidewire followed by 6.0 tap. Next, once this was accomplished, the wires were removed. I plugged the tapped pedicle screw tract using bone wax. We had verified wire and tap position in both AP and lateral fluoroscopy. Next, once this was accomplished 75 mm blades and the Shadow-Line retractor were assembled and placed to the left of midline. At this stage, I utilized Leksells to remove posterior lamina and hypertrophic portions of the facets of L4-5. This was retained as bone graft. Next, the operating microscope was sterilely draped. My loupes were exchanged. The operating microscope was brought in. I utilized the high speed bur to implement a left unilateral laminectomy at L4 extending superiorly through the bare area of 4, removing generous portions of the inferior facet of 4, extending to the superior lamina of 5 bare area, and removing generous portions of the superior facet of 5. Curved curettes were utilized to elevate ligamentum flavum which was removed using Kerrisons. Next, we exposed the thecal sac. I was able to use a Castillo-Roberth to palpate the pedicle of 5 on the patient's left side. We further contoured to allow access to the interspace for a posterior lumbar interbody fusion (PLIF) using the high speed bur. Next, we then utilized a Anshu retractor, Mr. Bell securing it, to retract the traversing nerve root and thecal sac medially allowing exposure of the disk at 4-5. This annulus complex was opened using 11 blade. Pituitaries were utilized to remove friable disk material. I inserted a spreading device 10 mm and rotated it to distract the disk space. I then tightened the end cap of the screws on the contralateral side to secure distraction. Next, we then continued to clear the interspace of disk material and cartilaginous end plates using reamers through a size 11 reamer as well as ring curettes and rasps. Next, once this was accomplished, we placed the 11 mm sounding tool which seemed to fit appropriately. We did obtain cross table lateral x-ray and AP x-ray to verify the sound placement. This was then removed. Next, we then obtained iliac crest bone graft from the patient's left posterior-superior iliac spine through a separate fascial incision using curettes. Once the bone graft was obtained, I irrigated and anesthetized using Exparel solution and packed with dry Gelfoam, as well as, irrigated with tranexamic acid (TXA). I closed the fascial incision with interrupted stitch. Next, once this was accomplished, Mr. Bell stepped to the back table and packed the CASCADIA cage with the iliac crest bone graft and I further prepared the interspace at L4-5 on the patient's left side and placed additional three morselized fragments of iliac crest bone graft within the interspace. Once this was accomplished, we then obtained the cage, which was also coated with DBX putty. Mr. Bell retracted the traversing nerve root using Anshu retractors and I installed the 11 mm CASCADIA cage, tapping it into place, verifying alignment on AP and lateral fluoroscopy. Once the cage was beyond the posterior verbal body, we disengaged the cage. We irrigated and inspected, no active bleeding and no CSF leak. Next, I then further exposed the transverse processes of 4 and 5 on the patient's left side using a David retractor and Mr. Bell placed 14 mL of morselized bone graft mixed with bur millings between the transverse processes of 4 and 5 on the patient's left side. We had also irrigated using saline solution. We also placed TXA within the wound. This was allowed to stand for a minute before evacuation. We also placed 500 mg of vancomycin crystals within the surgical wound for antibiotic prophylaxis. Next, we placed the 7 flat drain exiting superolaterally to the patient's left. We placed the 50 mm pedicle screws on the left at 4 and 5. This was accomplished by replacing the guidewire into the pedicle, verifying the guidewire position within the tapped pedicle and placing the pedicle screw over the guidewire, removing the guidewire at the vertebral body as a pedicle screw was advanced to the vertebral body. The pedicle screws were then placed and verified in AP and lateral fluoroscopy. This was accomplished on the left at 4 and 5. Once that was accomplished, the connecting cammie was placed at 4-5. The torque counter torque device was utilized to lock the pedicle screws on the contralateral right side. The end cap was released and the contralateral side was allowed to compress. Because of the patient's adequate lordosis, we did not further compress using the compressor tool. We used the torque counter torque device to lock the pedicle screws. Next, once this was accomplished, all retractors had been removed. The wound was inspected. All counts reported correct. The 7 flat drain was placed to the left. Fascial tissues were reapproximated with interrupted stitch. Tunde fascia and deep dermis was approximated with interrupted stitch. Pernio dressing utilized on the skin. Next, once this was accomplished, the patient was able to be log rolled to the hospital bed, extubated and moved to the recovery room in good condition.
--- NOTE | 2020-03-02 13:20 | DSES ---
DATE OF ADMISSION: 02/09/2020 DATE OF DISCHARGE: 02/11/2020 ATTENDING PHYSICIAN: Dr. Tommie Peoples ADMISSION DIAGNOSIS: Symptomatic lumbar spondylolisthesis with radiculopathy. OTHER DIAGNOSES: 1. Atrial fibrillation status post ablation. 2. Hypertension. 3. Hyperlipidemia. 4. Osteoarthritis. 5. Obstructive sleep apnea. 6. Erectile dysfunction. 7. Hypertensive heart disease. DISCHARGE DIAGNOSIS: Lumbar spondylolisthesis with radiculopathy status post left L4-5 laminectomy with laminectomy. OPERATION PERFORMED: Left unilateral laminectomy, L4-5 lumbar fusion. HISTORY: This is a 64-year-old male patient with progressively worsening lumbar spondylolisthesis, radiculopathy and neurogenic claudication. He failed to improve with conservative management. He was admitted for elective laminectomy, decompression and fusion of the left L4-5. HOSPITAL COURSE: The patient was admitted on the day of surgery and underwent the above procedure which was uneventful. He did well in the postoperative period and his hospital course was without complications. He was up with physical therapy per their protocol. He will resume his preoperative medications and diet along with oral pain medications for pain control. He was given instructions to include but not limited to wound monitoring and activity limitations. He will followup in our office in 10-14 days for surgical followup. Please refer to the medical record for further details.
== END 2020-02-11 11:45 | disposition home or self-care (01) | DRG 460 ==
LOC: M OR 11:01 → M MS5PR 22:30
PROVIDERS: ADMIT Orthopaedic Surgery; ATTEND Orthopaedic Surgery
PROC: 0QB30ZZ Excision of Left Pelvic Bone, Open Approach (ICD-10-PCS; 2020-02-09)
PROC: 0SG00AJ Fusion of Lumbar Vertebral Joint with Interbody Fusion Device, Posterior Approach, Anterior Column, Open Approach (ICD-10-PCS; principal; 2020-02-09 12:30)
DX: M48.062 Spinal stenosis, lumbar region with neurogenic claudication (principal); I11.9 Hypertensive heart disease without heart failure; G47.33 Obstructive sleep apnea (adult) (pediatric); I48.91 Unspecified atrial fibrillation; N52.9 Male erectile dysfunction, unspecified; M19.90 Unspecified osteoarthritis, unspecified site; E78.5 Hyperlipidemia, unspecified

== ENCOUNTER → 2023-10-20 | Outpatient (REF) | payer MEDICARE, OTHER ==
[~2023-10-20] MED LIST changes: +ASPI81TA86 PO; +CARV6.25 PO; +CYCL-707 PO; +FURO20TA2 PO; -GABAPENTIN 300 MG CAP PO ONE; -LIDOCAINE 2% 100MG/5ML SDV (FOR ANES.) As Ordered ONE; -LR 1,000 ML IV ONE; -MIDAZOLAM INJ 2MG/2ML VIAL (J2250 PER 1MG) As Ordered ONE; -PERCOCET 5MG/325MG TAB PO ONE; -ROCURONIUM BROMIDE 50 MG/5 ML VIAL As Ordered ONE; +SIMV-254 PO; -ZOCO40TA PO; -dexameTHASONE 4 MG/ML 1ML VIAL (J1100 PER 1MG) As Ordered ONE; -fentaNYL 250 MCG/5 ML INJECTION (J3010) As Ordered ONE; -propofoL 200 MG/20 ML VIAL As Ordered ONE
== END ==
LOC: M SFHCADAM 10:27
PROVIDERS: ATTEND Physician Assistant
DX: R97.20 Elevated prostate specific antigen [PSA] (principal)

== ENCOUNTER → 2023-11-05 | Outpatient (REF) | payer MEDICARE, OTHER | LOC: M SMT PRO 09:36 | PROVIDERS: ATTEND Urology | DX: C61 Malignant neoplasm of prostate (principal); R97.20 Elevated prostate specific antigen [PSA]; Z79.01 Long term (current) use of anticoagulants; Z79.899 Other long term (current) drug therapy ==

== ENCOUNTER → 2024-07-03 | Outpatient (REF) | payer MEDICARE, OTHER ==
[~2024-07-03] MED LIST changes: +GABA-1490 PO; -GABA600T4 PO
== END ==
LOC: M SMT 12:50
PROVIDERS: ATTEND Urology
DX: C61 Malignant neoplasm of prostate (principal)

== ENCOUNTER → 2024-10-11 | Outpatient (REF) | payer MEDICARE, OTHER | LOC: M LAB REF 12:31 | PROVIDERS: ATTEND Nurse Practitioner Family | DX: R10.9 Unspecified abdominal pain (principal) ==

== ENCOUNTER → 2024-12-14 | Outpatient (CLI) | payer MEDICARE, OTHER | LOC: M PLALAB 09:02 | PROVIDERS: ATTEND Urology | DX: C61 Malignant neoplasm of prostate (principal) ==